=== PATIENT | female | born 1995 | race Two or more races ===

== ENCOUNTER → 2023-06-29 | Outpatient (CLI) | payer OTHER | LOC: M CARPUL 07:54 | PROVIDERS: ATTEND Family Medicine | DX: J45.909 Unspecified asthma, uncomplicated (principal) ==

== ENCOUNTER → 2023-07-04 | Outpatient (CLI) | payer OTHER ==
[~2023-07-04] MED LIST: METHACHOLINE KIT INH ONE
== END ==
LOC: M CARPUL 09:35
PROVIDERS: ATTEND Family Medicine
DX: J45.909 Unspecified asthma, uncomplicated (principal)
CPT/HCPCS: 94070; J7674